=== PATIENT | male | born 1965 | race Caucasian/White ===

== ENCOUNTER 2023-08-31 02:44 | Inpatient (IN) | payer BC, SELFPAY ==
[2023-08-31] MEDS ORDERED: Ondansetron PF 4 MG/2 ML Vial ONE ×2 (03:06→09:55)
[2023-08-31] MEDS ORDERED: Morphine 4 MG/ML VIAL ONE ×2 (03:06→04:36)
[2023-08-31] MEDS ORDERED: Dicyclomine 20 MG/2 ML VIAL ONE (03:06)
[2023-08-31 03:40] LABS: #Basophils 0.1 10x3/uL (0.0-0.2); #Monocytes 1.5 10x3/uL (0.0-1.1); #Neutrophils 16.2 10x3/uL (1.5-8.4); %Basophils 0.4 % (0.0-2.0); %Eosinophils 0.1 % (0.0-6.0); %Lymphocytes 20.1 % (18.0-47.0); %Monocytes 6.7 % (0.0-10.0); %Neutrophils 72.3 % (40.0-75.0); Hematocrit 44.3 % (38.8-50.0); Hemoglobin 16.2 g/dL (13.5-17.5); Mean Corpuscular HGB CONC 36.6 g/dL (32.0-36.0); Mean Corpuscular Hemoglobin 30.6 pg (27.0-33.0); Mean Corpuscular Volume 83.7 fl (81.2-95.1); Mean Platelet Volume 10.7 fl (7.4-10.4); Platelet Count 240 10x3/uL (150-450); RBC Distribution Width 11.7 % (11.5-14.5); Red Blood Cell (RBC) Count 5.29 10x6/uL (4.32-5.72); White Blood Cell (WBC) Count 22.4 10x3/uL (3.5-10.5)
[2023-08-31 03:41] LABS: ALT (SGPT) 71 U/L (8-55); AST (SGOT) 56 U/L (5-34); Albumin 4.6 g/dL (3.5-5.0); Alkaline Phosphatase 95 U/L (40-110); Anion Gap 19 mmol/L (10-20); BUN (Urea Nitrogen) 10 mg/dL (8.4-25.7); Bilirubin, Total 0.9 mg/dL (0.2-1.2); Calc. Creatinine Clearance 0 mL/min (70-130); Carbon Dioxide 20 mmol/L (22-29); Chloride 102 mmol/L (98-107); Estimated GFR 77; Globulin 3.4 g/dL (2.4-3.5); Glucose 161 mg/dL (70-105); Lipase 9 U/L (8-78); Sodium 137 mmol/L (136-145)
[2023-08-31 03:44] LABS: Critical Call Chem-Lactate NUR.LH1@0344
[2023-08-31] MEDS ORDERED: Piperacillin/Tazobactam 4.5 GM VIAL ONE (04:28)
[2023-08-31 06:23] VITALS: BMI 28.8
[2023-08-31] MEDS ORDERED: Morphine 2 MG/ML VIAL SLOW IVP PRN (07:01)
[2023-08-31] MEDS: Morphine 4 MG/ML VIAL SLOW IVP PRN (07:05)
[2023-08-31] MEDS ORDERED: Ondansetron ODT 4 MG TAB SL PRN (07:15)
[2023-08-31] MEDS ORDERED: Ondansetron PF 4 MG/2 ML Vial IVP PRN (07:15)
[2023-08-31] MEDS ORDERED: Lactated Ringer's 1,000 ML IV SCH (07:30)
[2023-08-31 07:46] LABS: Lactic Acid 2.1 mmol/L (0.5-2.2)
[2023-08-31 08:47] LABS: Lactic Acid 1.1 mmol/L (0.5-2.2)
[2023-08-31] MEDS ORDERED: Bupivacaine PF 0.5% 30 ML VIAL ONE (09:17)
[2023-08-31] MEDS ORDERED: Iopamidol 370 76% 100 ML VIAL ONE (09:25)
[2023-08-31] MEDS ORDERED: Rocuronium Bromide 10 MG/ML (10ML VIAL) ONE (09:55)
[2023-08-31] MEDS ORDERED: Fentanyl 250 MCG/5 ML VIAL ONE (09:55)
[2023-08-31] MEDS ORDERED: Dexamethasone 4 mg/ml Vial ONE (09:55)
[2023-08-31] MEDS ORDERED: Lidocaine 2% PF 5 ML VIAL ONE (09:55)
[2023-08-31] MEDS ORDERED: PROPOFOL 20 ML ONE (09:55)
[2023-08-31] MEDS ORDERED: Midazolam HCl 2 mg/2 ml Vial ONE (09:55)
[2023-08-31] MEDS ORDERED: Glucagon 1 MG/ML KIT IM PRN (10:07)
[2023-08-31] MEDS ORDERED: Dextrose 50% Abboject 50 ML SYRINGE SLOW IVP PRN (10:07)
[2023-08-31] MEDS ORDERED: Dextrose 5% in Water 1,000 ML IV PRN (10:07)
[2023-08-31] MEDS ORDERED: hydrALAZINE 20 MG/ML VIAL SLOW IVP PRN (10:07)
[2023-08-31] MEDS ORDERED: hydrOXYzine 25 MG TAB PO PRN (10:09)
[2023-08-31] MEDS ORDERED: SUGAMMADEX SODIUM 200 MG/2 ML VIAL ONE (10:19)
[2023-08-31] MEDS ORDERED: EPINEPHrine 1 MG/ML AMP ONE (10:21)
[2023-08-31] MEDS ORDERED: fentaNYL 50 mcg/mL 1 mL Vial ONE ×3 (11:29→12:28)
[2023-08-31] MEDS: Ketorolac Tromethamine 30 MG (1 mL) VIAL IVP SCH (13:20)
[2023-08-31] MEDS: Piperacillin/Tazobactam 3.375 GM in Sodium Chloride 0.9% 100 ML IVPB SCH ×2 (13:23→15:21)
[2023-08-31] MEDS: D5 1/2 NS w/20 mEq KCL 1,000 ML IV SCH (13:24)
[2023-08-31] MEDS: Gabapentin 300 MG CAP PO SCH (15:19)
[2023-08-31] MEDS: Morphine 2 MG/ML VIAL SLOW IVP PRN (19:27)
[2023-08-31] MEDS: QUEtiapine 100 MG TAB PO SCH (20:31)
[2023-08-31] MEDS: Famotidine 20 MG TAB PO SCH (20:32)
[2023-08-31] MEDS: Famotidine/PF 20 mg/2ml Vial SLOW IVP SCH (20:49)
[2023-09-01] MEDS: Sertraline 25 MG TAB PO SCH (09:24)
[2023-09-01] MEDS: Enoxaparin 40 MG (0.4 mL) SYRINGE SC SCH (09:24)
[2023-09-01] MEDS: traMADol HCl 50 MG TAB PO PRN (09:31)
[2023-09-01 12:25] LABS: #Eosinphils 0.1 10x3/uL (0.0-0.5); #Monocytes 0.5 10x3/uL (0.0-1.1); #Neutrophils 8.5 10x3/uL (1.5-8.4); %Basophils 0.3 % (0.0-2.0); %Eosinophils 1.1 % (0.0-6.0); %Lymphocytes 11.6 % (18.0-47.0); %Monocytes 4.6 % (0.0-10.0); %Neutrophils 81.8 % (40.0-75.0); Hematocrit 35.5 % (38.8-50.0); Hemoglobin 12.1 g/dL (13.5-17.5); Mean Corpuscular HGB CONC 34.1 g/dL (32.0-36.0); Mean Corpuscular Hemoglobin 30.4 pg (27.0-33.0); Mean Corpuscular Volume 89.2 fl (81.2-95.1); Mean Platelet Volume 10.6 fl (7.4-10.4); Platelet Count 124 10x3/uL (150-450); RBC Distribution Width 12.3 % (11.5-14.5); Red Blood Cell (RBC) Count 3.98 10x6/uL (4.32-5.72); White Blood Cell (WBC) Count 10.4 10x3/uL (3.5-10.5)
[2023-09-01 12:47] LABS: Anion Gap 15 mmol/L (10-20); BUN (Urea Nitrogen) 16 mg/dL (8.4-25.7); Calc. Creatinine Clearance 124 mL/min (70-130); Calcium 8.6 mg/dL (7.8-10.44); Carbon Dioxide 19 mmol/L (22-29); Chloride 105 mmol/L (98-107); Estimated GFR 102; Glucose 108 mg/dL (70-105); Potassium 4.5 mmol/L (3.5-5.1); Sodium 134 mmol/L (136-145)
[2023-09-02] MEDS: Lactated Ringer's 1,000 ML IV SCH (11:33)
[2023-09-02] MEDS: Ipratropium/Albuterol 3 ML NEB NEB PRN (21:10)
[2023-09-03] MEDS: Furosemide 20 MG (2 mL) VIAL SLOW IVP SCH (10:35)
[2023-09-04] MEDS: Ipratropium/Albuterol 3 ML NEB NEB SCH (15:00)
[2023-09-05] MEDS ORDERED: hydrOXYzine Pamoate 25 mg Capsule PO PRN (09:45)
[2023-09-05] MEDS: hydrOXYzine Pamoate 25 mg Capsule PO SCH (10:25)
[2023-09-06] MEDS: Ondansetron PF 4 MG/2 ML Vial IVP PRN (08:33)
[2023-09-06] MEDS ORDERED: Iopamidol 300 61% 100 ML VIAL FS ONE (10:05)
[2023-09-06] MEDS: Sodium Chloride 0.9% 1,000 ML IV SCH (12:39)
[2023-09-06] MEDS: Promethazine HCl 25 MG/ML VIAL IM PRN (19:36)
[2023-09-07 05:11] LABS: #Basophils 0.1 10x3/uL (0.0-0.2); #Eosinphils 0.2 10x3/uL (0.0-0.5); #Monocytes 0.8 10x3/uL (0.0-1.1); #Neutrophils 6.7 10x3/uL (1.5-8.4); %Basophils 0.6 % (0.0-2.0); %Lymphocytes 17.3 % (18.0-47.0); %Monocytes 8.6 % (0.0-10.0); Hematocrit 36.2 % (38.8-50.0); Hemoglobin 12.3 g/dL (13.5-17.5); Mean Corpuscular Hemoglobin 29.6 pg (27.0-33.0); Mean Platelet Volume 9.8 fl (7.4-10.4); Platelet Count 249 10x3/uL (150-450); RBC Distribution Width 12.3 % (11.5-14.5); Red Blood Cell (RBC) Count 4.16 10x6/uL (4.32-5.72); White Blood Cell (WBC) Count 9.6 10x3/uL (3.5-10.5)
[2023-09-07 05:24] LABS: ALT (SGPT) 19 U/L (8-55); AST (SGOT) 16 U/L (5-34); Albumin 3.2 g/dL (3.5-5.0); Alkaline Phosphatase 211 U/L (40-110); Anion Gap 14 mmol/L (10-20); BUN (Urea Nitrogen) 13 mg/dL (8.4-25.7); Bilirubin, Total 0.4 mg/dL (0.2-1.2); Calc. Creatinine Clearance 112 mL/min (70-130); Calcium 9.2 mg/dL (7.8-10.44); Carbon Dioxide 25 mmol/L (22-29); Chloride 106 mmol/L (98-107); Estimated GFR 94; Globulin 3.6 g/dL (2.4-3.5); Glucose 90 mg/dL (70-105); Protein, Total 6.8 g/dL (6.0-8.3); Sodium 141 mmol/L (136-145)
[2023-09-08 04:55] VITALS: TEMP 98
[2023-09-08 06:34] LABS: #Basophils 0.1 10x3/uL (0.0-0.2); #Eosinphils 0.2 10x3/uL (0.0-0.5); #Monocytes 0.7 10x3/uL (0.0-1.1); #Neutrophils 7.4 10x3/uL (1.5-8.4); %Basophils 0.7 % (0.0-2.0); %Lymphocytes 13.2 % (18.0-47.0); %Monocytes 7.4 % (0.0-10.0); %Neutrophils 75.4 % (40.0-75.0); Hematocrit 34.6 % (38.8-50.0); Hemoglobin 11.9 g/dL (13.5-17.5); Mean Corpuscular HGB CONC 34.4 g/dL (32.0-36.0); Mean Corpuscular Hemoglobin 29.5 pg (27.0-33.0); Mean Corpuscular Volume 85.6 fl (81.2-95.1); Mean Platelet Volume 9.7 fl (7.4-10.4); Platelet Count 244 10x3/uL (150-450); RBC Distribution Width 11.9 % (11.5-14.5); Red Blood Cell (RBC) Count 4.04 10x6/uL (4.32-5.72); White Blood Cell (WBC) Count 9.9 10x3/uL (3.5-10.5)
[2023-09-08 09:30] VITALS: BP 139/90
== END 2023-09-08 10:20 | disposition home or self-care (01) | DRG 853 ==
LOC: CSHERS 02:44 → CSHTELE 04:34 → OBSVTOIN 04:34
PROVIDERS: ADMIT Student in an Organized Health Care Education/Training Program; ATTEND Student in an Organized Health Care Education/Training Program
PROC: 0DTJ4ZZ Resection of Appendix, Percutaneous Endoscopic Approach (ICD-10-PCS; principal; 2023-08-31)
DX: A41.9 Sepsis, unspecified organism (principal); K35.32 Acute appendicitis with perforation, localized peritonitis, and gangrene, without abscess; K56.7 Ileus, unspecified; F41.9 Anxiety disorder, unspecified; E87.70 Fluid overload, unspecified; F32.A Depression, unspecified; Z98.890 Other specified postprocedural states; Z82.3 Family history of stroke; Z88.8 Allergy status to other drugs, medicaments and biological substances
CPT/HCPCS: 71045; 71046; 74177; 80048; 80053; 83605; 83690; 85025; 88304; 94640; 94760; 94762; 96372; 96374; 96375; 96376; A4649; J0171; J0665; J1100; J1650; J1885; J1940; J2001; J2250; J2270; J2272; J2405; J2543; J2550; J2704; J3010; J3480; J3490; J7050; J7120; J7620; Q0177; Q9967; S0028